=== PATIENT | female | born 1965 | race Caucasian/White ===

== ENCOUNTER 2018-01-30 12:30 | Emergency (ER) | END 2018-01-30 15:41 | disposition home or self-care (01) ==

== ENCOUNTER 2018-06-17 12:19 | Emergency (ER) | END 2018-06-17 14:51 | disposition home or self-care (01) ==

== ENCOUNTER 2018-09-17 13:22 | Emergency (ER) | payer OTHER ==
[~2018-09-17] VITALS: Ht 162.6 cm; Wt 57.0 kg
[~2018-09-17 13:22] MED LIST: CYCL10TA7 PO; DULO30CA45 PO; FEXO180T13 PO; IBUP-1542 PO; LEVO75TA5 PO; RANI150T5 PO; TRAM50TA2 PO
[2018-09-17 13:26] VITALS: Ht 162.6 cm; Wt 57.0 kg
[2018-09-17] MEDS ORDERED: LIDOCAINE/MYLANTA 40 ML BTL PO STA (15:16)
[2018-09-17] MEDS ORDERED: KETOROLAC 15 MG INJ IV STA (15:16)
[2018-09-17] MEDS ORDERED: SOD CHLORIDE 0.9% 1,000 ML IV STA (15:16)
[2018-09-17] MEDS ORDERED: BELLADONNA/PHENOBARBITAL TAB PO STA (15:16)
[2018-09-17] MEDS ORDERED: ONDANSETRON 4 MG INJ IV STA (15:16)
[2018-09-17] MEDS ORDERED: FAMOTIDINE 20 MG TAB PO STA (15:16)
[2018-09-17] MEDS ORDERED: LEVO75TA5 PO (15:41)
[2018-09-17] MEDS ORDERED: GABA300C16 PO (15:42)
[2018-09-17] MEDS ORDERED: FAMO-96 PO (16:47)
[2018-09-17] MEDS ORDERED: MAG355OR14 PO (16:47)
--- NOTE | 2018-09-17 17:02 | ERD ---
ER Documentation Chief Complaint Chief Complaint RUQ PAIN THAT RADIATES TO THE BACK, NAUSEA,FEELS DIZZY X3 MONTHS GOT WORSE HPI 52-year-old woman with complaints of right upper quadrant abdominal pain radiating to the right back. She has had similar episodes in the past and has had this pain for the last 3 months intermittently. She is status post cholecystectomy, she denies fevers or chills, no vomiting or diarrhea, no chest pain or shortness of breath. Patient denies blood per rectum or melena and denies weight loss. ROS All systems reviewed and are negative except as per history of present illness. Medications Home Meds Active Scripts Famotidine* (Pepcid*) 20 Mg Tablet, 20 MG PO BID for 14 Days, TAB Prov:TY MONROE MD 09/17/18 Mag Hydrox/Al Hydrox/Simeth (Maalox Advanced Suspension) 355 Ml Oral.susp, 2 TSP PO TID PRN for PAIN, #24 OZ Prov:TY MONROE MD 09/17/18 Reported Medications Gabapentin* (Gabapentin*) 300 Mg Capsule, 300 MG PO DAILY, #60 CAP 09/17/18 Levothyroxine Sodium* (Levothyroxine Sodium*) 75 Mcg Tablet, 75 MCG PO BEFORE BREAKFAST, #30 TAB 09/17/18 Discontinued Reported Medications Duloxetine Hcl* (Cymbalta*) 30 Mg Capsule.dr, 30 MG PO DAILY, CAP 06/25/16 Levothyroxine Sodium* (Levothyroxine Sodium*) 75 Mcg Tablet, 75 MCG PO BEFORE BREAKFAST, #30 TAB 06/25/16 Discontinued Scripts Cyclobenzaprine Hcl* (Cyclobenzaprine Hcl*) 10 Mg Tablet, 10 MG PO TID, #15 TAB Prov:QUINN MA MD 06/17/18 Ibuprofen* (Motrin*) 600 Mg Tab, 600 MG PO Q6, #30 TAB Prov:QUINN MA MD 06/17/18 Ranitidine Hcl* (Ranitidine Hcl*) 150 Mg Tablet, 150 MG PO HS, #30 TAB Prov:MARK WOLF MD 01/30/18 Fexofenadine Hcl* (Fexofenadine Hcl*) 180 Mg Tablet, 180 MG PO DAILY, #30 TAB Prov:MARK WOLF MD 01/30/18 Tramadol HCl (Tramadol HCl) 50 Mg Tablet, 50 MG PO Q6, #20 TAB Prov:ZAN VACA DO 06/25/16 Allergies Allergies: Coded Allergies: No Known Allergy (Unverified , 09/17/18) PMhx/Soc Hypertension, hypothyroidism, gastritis, history of cholecystectomy History of Surgery: Yes (GALL BLADDER REMOVAL) Anesthesia Reaction: No Hx Neurological Disorder: No Hx Respiratory Disorders: No Hx Cardiac Disorders: No Hx Psychiatric Problems: No Hx Miscellaneous Medical Probl: Yes (HYPOTHYROID) Hx Alcohol Use: No Hx Substance Use: No Hx Tobacco Use: No FmHx Family History: diabetes Physical Exam Vitals Vital Signs Date Temp Pulse Resp B/P (MAP) Pulse Ox O2 O2 Flow FiO2 Time Delivery Rate 09/17/18 98.1 78 18 121/69 100 Room Air 17:23 (86) 09/17/18 96.2 72 19 124/80 97 13:26 (95) Physical Exam Const: No acute distress, afebrile Head: Atraumatic Eyes: Normal Conjunctiva ENT: Normal External Ears, Nose and Mouth. Neck: Full range of motion. No meningismus. Resp: Clear to auscultation bilaterally Cardio: Regular rate and rhythm, no murmurs Abd: Soft, non tender, non distended. No Mendez sign, no guarding or rigidity Skin: No petechiae or rashes Back: No midline or flank tenderness Ext: No cyanosis, or edema Neur: Awake and alert x3, no focal deficits or facial asymmetry Psych: Normal Mood and Affect Result Diagram: 09/17/18 1530 09/17/18 1530 Results 24 hrs Laboratory Tests Test 09/17/18 15:30 White Blood Count 6.8 10^3/ul Red Blood Count 4.85 10^6/ul Hemoglobin 13.4 g/dl Hematocrit 40.9 % Mean Corpuscular Volume 84.3 fl Mean Corpuscular Hemoglobin 27.6 pg Mean Corpuscular Hemoglobin Concent 32.8 g/dl Red Cell Distribution Width 12.4 % Platelet Count 225 10^3/UL Mean Platelet Volume 12.4 fl Immature Granulocytes % 0.100 % Neutrophils % 50.8 % Lymphocytes % 37.6 % Monocytes % 8.4 % Eosinophils % 2.7 % Basophils % 0.4 % Nucleated Red Blood Cells % 0.0 /100WBC Immature Granulocytes # 0.010 10^3/ul Neutrophils # 3.4 10^3/ul Lymphocytes # 2.5 10^3/ul Monocytes # 0.6 10^3/ul Eosinophils # 0.2 10^3/ul Basophils # 0.0 10^3/ul Nucleated Red Blood Cells # 0.0 10^3/ul Sodium Level 140 mmol/L Potassium Level 3.7 mmol/L Chloride Level 105 mmol/L Carbon Dioxide Level 25 mmol/L Anion Gap 10 Blood Urea Nitrogen 13 mg/dl Creatinine 0.59 mg/dl Est Glomerular Filtrat Rate mL/min > 60 mL/min Glucose Level 111 mg/dl Calcium Level 9.3 mg/dl Total Bilirubin 0.1 mg/dl Direct Bilirubin 0.00 mg/dl Indirect Bilirubin 0.1 mg/dl Aspartate Amino Transf (AST/SGOT) 29 IU/L Alanine Aminotransferase (ALT/SGPT) 15 IU/L Alkaline Phosphatase 87 IU/L Troponin I < 0.012 ng/ml Total Protein 7.9 g/dl Albumin 4.7 g/dl Globulin 3.20 g/dl Albumin/Globulin Ratio 1.46 Lipase 112 U/L Current Medications Medications Dose Sig/Jocelin Start Time Status Last (Trade) Ordered Route PRN Stop Time Admin Dose Reason Admin Sodium 1,000 ml @ Q1H STAT 09/17/18 DC 09/17/18 Chloride 1,000 mls/hr IV 15:16 15:27 09/17/18 16:15 Ondansetron 4 mg ONCE STAT 09/17/18 DC 09/17/18 HCl (Zofran IV 15:16 15:27 Inj) 09/17/18 15:18 Famotidine 20 mg ONCE STAT 09/17/18 DC 09/17/18 (Pepcid) PO 15:16 15:27 09/17/18 15:18 40 ml ONCE STAT 09/17/18 DC 09/17/18 Miscellaneous PO 15:16 15:28 Medication 09/17/18 15:18 (Gi Cocktail (2)) Belladonna/ 2 tab ONCE STAT 09/17/18 DC 09/17/18 Phenobarbital PO 15:16 15:27 () 09/17/18 15:18 Ketorolac 15 mg ONCE STAT 09/17/18 DC 09/17/18 Tromethamine IV 15:16 15:27 (Toradol) 09/17/18 15:18 Procedures/MDM IV line was established patient was placed on paper cutter rhythm strip revealed a sinus rhythm at about 60 bpm with upright P and T waves. Patient was afebrile EKG performed, read by me revealed a sinus bradycardia 56 bpm, normal axis, narrow QRS complex, no concerning ST elevations or depressions noted I administered 1 L normal saline IV, Toradol 15 mg IV, Zofran 4 mg IV, GI cocktail p.o., famotidine p.o. CBC and electrolytes are normal, liver function tests were normal, troponin was negative Differential diagnoses considered, included but not limited to acute coronary syndrome, pulmonary embolism, aortic dissection, abdominal aortic aneurysm, sepsis, stroke, meningitis, encephalitis, pneumonia, appendicitis, cholecystitis, bowel obstruction, pyelonephritis, nephrolithiasis, cystitis, as well as metabolic, hematologic, and electrolyte abnormalities. As well as abscess, cellulitis, fractures, and dislocations. Patient feels much better at this time, and vital signs are normal, symptoms have improved. I did give strict instructions to return to the ED if symptoms continue or worsen, patient will otherwise follow-up with primary care physician. Patient understood instructions and agreed to plan. Disclaimer: Inadvertent spelling and grammatical errors are likely due to EHR/dictation software use and do not reflect on the overall quality of patient care. Also, please note that the electronic time recorded on this note does not necessarily reflect the actual time of the patient encounter. Departure Diagnosis: Primary Impression: Abdominal pain Abdominal location: right upper quadrant Qualified Codes: R10.11 - Right upper quadrant pain Condition: Good Patient Instructions: Abdominal Pain, Unknown Cause, (Female) TY MONROE MD Sep 17, 2018 17:02
[2018-09-17 17:23] VITALS: BP 121/69; PULSE 78; RESP 18
== END 2018-09-17 17:25 | disposition home or self-care (01) ==
LOC: E/R 13:22
DX: R10.11 Right upper quadrant pain (principal); R11.0 Nausea; I10 Essential (primary) hypertension; E03.9 Hypothyroidism, unspecified
CPT/HCPCS: 36415; 80053; 83690; 84484; 85025; 93005; 96374; 96375; J1885; J2405; J7030; Z7502; Z7610

== ENCOUNTER 2019-01-14 10:14 | Emergency (ER) | payer OTHER ==
[~2019-01-14] VITALS: Ht 162.6 cm; Wt 55.6 kg
[~2019-01-14 10:14] MED LIST changes: -CYCL10TA7 PO; -DULO30CA45 PO; +FAMO-96 PO; -FEXO180T13 PO; +GABA300C16 PO; -IBUP-1542 PO; +MAG355OR14 PO; -RANI150T5 PO; -TRAM50TA2 PO
[2019-01-14 10:21] VITALS: BP 146/74; PULSE 75; RESP 17; Ht 162.6 cm; Wt 55.6 kg
--- NOTE | 2019-01-14 11:11 | ERD ---
ER Documentation Chief Complaint Chief Complaint Pt with LESTER X 1 week and gen. body rash X 3 days HPI 53-year-old female presents with complaint of rash on her vaginal area as well as spread out over her body, headache, and neck pain for the past week. States that she was treated by her doctor for yeast infection and then afterwards she noticed a rash on her body. She thinks the rash is spreading. In addition she still has a vaginal itching. She has a history of syphilis 12 years ago for which she states she was treated and denies being sexually active. Denies krueger dden onset, worse headache of life, fever, neck stiffness, rash, headache getting worse with change in position, headache initiated by exertion, LESTER worse in the morning, LESTER waking up patient at night, new neurological deficits, numbness, weakness, vision problems, tenderness to palpation over temporal area, history of trauma, or possibility of CO2 poisoning. Denies allergies. Denies medical problems. ROS All systems reviewed and are negative except as per history of present illness. Medications Home Meds Active Scripts Diphenhydramine Hcl* (Benadryl*) 50 Mg Cap, 50 MG PO Q6H PRN for ITCHING/RASH, #30 CAP Can make you tired. Do not use if you plan on driving or using machinery. Prov:SASCHA HERNANDEZ 01/14/19 Ibuprofen* (Motrin*) 600 Mg Tab, 600 MG PO Q6 for pain, #30 TAB Prov:SASCHA HERNANDEZ 01/14/19 Famotidine* (Pepcid*) 20 Mg Tablet, 20 MG PO BID for 14 Days, TAB Prov:TY MONROE MD 09/17/18 Mag Hydrox/Al Hydrox/Simeth (Maalox Advanced Suspension) 355 Ml Oral.susp, 2 TSP PO TID PRN for PAIN, #24 OZ Prov:TY MONROE MD 09/17/18 Reported Medications Gabapentin* (Gabapentin*) 300 Mg Capsule, 300 MG PO DAILY, #60 CAP 09/17/18 Levothyroxine Sodium* (Levothyroxine Sodium*) 75 Mcg Tablet, 75 MCG PO BEFORE BREAKFAST, #30 TAB 09/17/18 Allergies Allergies: Coded Allergies: No Known Allergy (Unverified , 09/17/18) PMhx/Soc History of Surgery: Yes (GALL BLADDER REMOVAL) Anesthesia Reaction: No Hx Neurological Disorder: No Hx Respiratory Disorders: No Hx Cardiac Disorders: No Hx Psychiatric Problems: No Hx Miscellaneous Medical Probl: Yes (HYPOTHYROID) Hx Alcohol Use: No Hx Substance Use: No Hx Tobacco Use: No FmHx Family History: No diabetes, No coronary disease, No other Physical Exam Vitals Vital Signs Date Temp Pulse Resp B/P (MAP) Pulse Ox O2 O2 Flow FiO2 Time Delivery Rate 01/14/19 97.8 75 17 146/74 96 10:21 (98) Physical Exam Const: No acute distress Head: Atraumatic Eyes: Normal Conjunctiva ENT: Normal External Ears, Nose and Mouth. Airway is patent with no angioedema or tongue swelling. Neck: Full range of motion. No meningismus. Resp: Clear to auscultation bilaterally Cardio: Regular rate and rhythm, no murmurs Abd: Soft, non tender, non distended. Normal bowel sounds Skin: Scattered erythematous macules noted over her body diffusely with no specific pattern. Back: No midline or flank tenderness Ext: No cyanosis, or edema Neur: Awake and alert Psych: Normal Mood and Affect Pelvic: performed with a grant officer present. Vaginal mucosa is nonerythematous without any lesions. There is white discharge noted on the cervix. Cervix is pink without any lesions. There are no rashes noted to the internal/external vaginal area. Neuro: M/S: Alert and oriented Face: EOMI, face and pharynx with normal sensation and function Motor: Normal strength throughout Sensation: Normal sensation throughout Speech: Normal Cerebel: Normal coordination Normal gait Normal finger to nose DTR: 2+ and symmetric upper/lower extremities Results 24 hrs Laboratory Tests Test 01/14/19 11:24 Urine Color YELLOW Urine Clarity SLIGHTLY CLOUDY Urine pH 6.0 Urine Specific Fosters 1.009 Urine Ketones NEGATIVE mg/dL Urine Nitrite NEGATIVE mg/dL Urine Bilirubin NEGATIVE mg/dL Urine Urobilinogen NEGATIVE mg/dL Urine Leukocyte Esterase NEGATIVE Nelda/ul Urine Microscopic RBC 0 /HPF Urine Microscopic WBC 0 /HPF Urine Hemoglobin NEGATIVE mg/dL Urine Glucose NEGATIVE mg/dL Urine Total Protein NEGATIVE mg/dl Rapid Plasma Reagin REACTIVE RPR Titer Additional Testing 1:4 Current Medications Medications Dose Sig/Jocelin Start Time Status Last (Trade) Ordered Route PRN Stop Time Admin Dose Reason Admin Ketorolac 60 mg ONCE STAT 01/14/19 DC 01/14/19 Tromethamine IM 12:10 01/14/19 12:48 (Toradol) 12:18 Penicillin 2,400,000 ONCE ONCE 01/14/19 DC 01/14/19 G units IM 14:00 01/14/19 14:20 Benzathine 14:01 (Bicillin La) Lidocaine 5 ml ONCE ONCE 01/14/19 DC (Xylocaine INJ 14:00 01/14/19 1% (Mpf)) 14:01 Procedures/MDM MDM: exam was within normal limits and wet mount was negative. However, RPR was positive so there was concern for possible syphilis. Patient treated with 2,400,000 units of penicillin IM. Patient given education that she is contagious and needs to refrain from sexual contact until her condition resolves. I have low suspicion for intracranial hemorrhage, elevated intracranial pressure, intracranial mass, aneurysm, meningitis, malignant hypertension, giant cell arteritis, carotid dissection, intracranial abscess, cerebral venous thrombosis, CO2 poisoning, or other emergent causes of headache based on patients history and exam. Patient discharged with strict ER precaut ions. Patient advised to follow up with PMD. All questions answered at discharge. Departure Diagnosis: Primary Impression: Syphilis Condition: Stable SASCHA HERNANDEZ January 14, 2019 11:11
[2019-01-14] MEDS ORDERED: KETOROLAC 60 MG INJ IM STA (12:10)
[2019-01-14] MEDS ORDERED: PENICILLIN G BENZ 2.4 MIL UNIT SYG IM ONE (14:00)
[2019-01-14] MEDS ORDERED: LIDOCAINE 1% (MPF) 5 ML VIAL INJ ONE (14:00)
[2019-01-14] MEDS ORDERED: IBUP-1542 PO (14:04)
[2019-01-14] MEDS ORDERED: BEN50 PO (14:05)
== END 2019-01-14 14:48 | disposition home or self-care (01) ==
LOC: FTE 10:14
DX: A52.76 Other genitourinary symptomatic late syphilis (principal)
CPT/HCPCS: 81001; 81003; 86592; 87210; 96372; J0561; J1885; Z7502